=== PATIENT | female | born 1965 | race Caucasian/White ===

== ENCOUNTER → 2016-10-20 | Outpatient (CLI) | payer OTHER | LOC: MC.RAD 15:18 | DX: Z12.31 Encounter for screening mammogram for malignant neoplasm of breast (principal) ==

== ENCOUNTER → 2020-10-22 | Outpatient (CLI) | payer OTHER | LOC: COL.PUL 13:00 | DX: R06.02 Shortness of breath (principal) | CPT/HCPCS: J7674 ==